=== PATIENT | female | born 1995 | race African-American/Black ===

== ENCOUNTER 2024-10-30 12:32 | Outpatient (OUT) | payer OTHER, SELFPAY | END 2024-10-30 12:33 | disposition home or self-care (01) | LOC: SLEEP 12:32 | PROVIDERS: PCP Internal Medicine; Visit Provider Internal Medicine | DX: G47.33 Obstructive sleep apnea (adult) (pediatric) (principal); J44.9 Chronic obstructive pulmonary disease, unspecified; I10 Essential (primary) hypertension | CPT/HCPCS: 95806 ==